=== PATIENT | male | born 1965 | race Caucasian/White ===

== ENCOUNTER 2019-03-24 22:23 | Emergency (ER) | payer SELFPAY ==
[2019-03-24] MEDS ORDERED: HYDROCODONE/ACETAMINOPHEN 5-325 MG (6 TAB/ER DISP) PO PRN (23:01)
--- NOTE | 2019-03-24 23:07 | ER Document Report ---
HPI - HPI Patient complains to provider of: right leg pain Time Seen by Provider: 03/24/19 23:01 Pain Level: 4 Context: Patient is a 54-year-old male that comes to the emergency department for chief complaint of injury to the right leg. He states he was braced pushing his back up against a car and pushing on the car when he felt a sharp pain and pop in his right calf muscle. Afterwards he started having increased pain and swelling to the area. Swelling is only at the calf muscle. He denies any pain, ankle pain, hip pain. He denies any daily medications. He only reports past medical history of orthopedic surgery. Past Medical History - General Information source: Patient - Social History Smoking Status: Never Smoker Frequency of alcohol use: None Drug Abuse: None Lives with: Family Family History: Reviewed & Not Pertinent - Medical History Medical History: Negative Surgical Hx: Negative - Immunizations Immunizations up to date: Yes Hx Diphtheria, Pertussis, Tetanus Vaccination: Yes Vertical Provider Document - CONSTITUTIONAL General Appearance: WD/WN, No Apparent Distress - INFECTION CONTROL TRAVEL OUTSIDE OF THE [place] IN LAST 30 DAYS: No - HEENT HEENT: Atraumatic, Normocephalic - NECK Neck: Normal Inspection - RESPIRATORY Respiratory: Breath Sounds Normal, No Respiratory Distress - CARDIOVASCULAR Cardiovascular: Regular Rate, Regular Rhythm - GI/ABDOMEN Gastrointestinal: Abdomen Soft, Abdomen Non-Tender - BACK Back: Normal Inspection - MUSCULOSKELETAL/EXTREMETIES Musculoskeletal/Extremeties: Tender - Tenderness with some mild soft tissue swelling at the mid right calf, no discoloration, knee exam is normal, knee range of motion is normal, hip exam is normal, ankle exam is normal. Normal distal neurovascular exam. Normal extremities otherwise. Course - Re-evaluation Re-evalutation: Based on mechanism and physical exam I suspect patient has a gastrocnemius tear, there is no evidence of compartment syndrome on my evaluation. Normal distal neurovascular exam. I did recommend an x-ray but patient declined. He states he does have an orthopedic surgeon to follow-up with. Patient does have pain from this, I did agree to provide him with pain medication for it. I discussed return precautions in detail. Patient states understanding and agreement with plan. Discharge - Discharge Clinical Impression: Right calf pain Right leg injury Qualifiers: Encounter type: initial encounter Qualified Code(s): S89.91XA - Unspecified injury of right lower leg, initial encounter Condition: Stable Disposition: HOME, SELF-CARE Additional Instructions: Your evaluation is consistent with a gastrocnemius tear. This is a tear of the calf muscle, this can cause a lot of pain and swelling. Take the anti-inflammatory as prescribed, take the pain medication as prescribed, apply ice to the area at least 3-4 times a day for 10 to 15 minutes. Follow-up closely with your orthopedic surgeon for additional evaluation and management. Return if you worsen including severe increased pain, swelling of your leg, numbness in your leg, or any other concerning or worsening symptoms. Prescriptions: Naproxen 500 mg PO BID PRN #20 tablet PRN Reason: Oxycodone HCl/Acetaminophen [Percocet 5-325 mg Tablet] 1 - 2 tab PO Q4H PRN #15 tablet PRN Reason:
[2019-03-25 03:43] VITALS: BP 135/89
== END 2019-03-24 23:01 | disposition home or self-care (01) ==
LOC: ER 22:23
DX: S89.91XA Unspecified injury of right lower leg, initial encounter (principal); X50.0XXA Overexertion from strenuous movement or load, initial encounter; Y93.89 Activity, other specified
CPT/HCPCS: 99283